=== PATIENT | male | born 1960 | race Two or more races ===

== ENCOUNTER 2024-10-23 18:35 | Emergency (ER) | payer OTHER ==
[~2024-10-23] VITALS: Ht 167.6 cm; Wt 90.7 kg
[2024-10-23] MEDS ORDERED: TAMS0.4C (18:40)
[2024-10-23] MEDS ORDERED: KETOROLAC TROMETHAMINE 30 MG VIAL IV ONE (19:00)
[2024-10-23] MEDS ORDERED: 0.9 % SODIUM CHLORIDE 1,000 ML IV ONE (19:00)
[2024-10-23] MEDS ORDERED: FAMOtidine 10 MG/ML (4ML VIAL) IV ONE (19:00)
[2024-10-23] MEDS ORDERED: FAMOTIDINE/PF 20 MG/2 ML VIAL ONE (19:57)
[2024-10-23] MEDS ORDERED: KETOROLAC TROMETHAMINE 30 MG VIAL ONE (19:57)
[2024-10-23 20:41] LABS: BASO % 0.4 % (0.1-1.2); EOS # 0.06 (0.04-0.54); EOS % 0.6 % (0.7-7.0); HEMATOCRIT 44.7 % (40.1-51.0); HEMOGLOBIN 15.1 g/dL (13.7-17.5); LYMPH # 2.64 (1.18-3.74); LYMPH % 27.6 % (19.3-53.1); MEAN CORPUSCULAR HEMOGLOBIN 30.9 pg (25.6-32.2); MONO # 0.71 (0.24-0.82); MONO % 7.4 % (4.7-12.5); NEUT # 6.11 (1.56-6.13); NEUT % 63.9 % (34.0-71.1); PLATELET COUNT 235 K/uL (163-369); RED BLOOD COUNT 4.89 M/uL (4.63-6.08); RED CELL DISTRIBUTION WIDTH 14.1 % (11.6-14.4)
[2024-10-23 21:14] LABS: PARTIAL THROMBOPLASTIN TIME 31.2 SECONDS (22.0-34.0); PROTHROMBIN TIME 10.9 SECONDS (9.0-11.5)
[2024-10-23 21:19] LABS: ALBUMIN 3.7 gm/dL (3.4-5.0); BILIRUBIN TOTAL 0.28 mg/dL (0.3-1.2); CALCIUM 9.5 mg/dL (8.5-10.1); CREATININE SERUM 1.23 mg/dL (0.70-1.30); GFR 59.06; GLOBULINA 3.2 G/DL (2.4-3.5); POTASSIUM 3.8 mEq/L (3.5-5.1); TOTAL PROTEIN 6.9 gm/dL (6.4-8.2)
[2024-10-23 21:47] LABS: URINE APPEARANCE Clear; URINE BILIRRUBIN Negative (NEGATIVE); URINE BLOOD Negative; URINE COLOR Yellow; URINE GLUCOSE Negative (NEGATIVE); URINE KETONE Trace (NEGATIVE); URINE LEUKOCYTE Negative; URINE NITRATE Negative; URINE PROTEIN Negative (NEGATIVE); URINE UROBILINOGEN 0.2 E.U./dl
[2024-10-23 21:52] LABS: URINE BACTERIA 12.2 uL (0.0-1933); URINE EPITHELIAL CELLS 3.4 uL (0.0-38.8); URINE RBC 6.9 uL (0.0-20.8); URINE WBC 4.4 uL (0.0-23.2)
[2024-10-23 21:56] LABS: URINE CAST 0.14 uL (0.0-1.40)
[2024-10-23 22:03] LABS: URINE CRYSTALS MODERATE /HPF
[2024-10-23] MEDS ORDERED: TAMS0.4C PO (22:45)
[2024-10-23] MEDS ORDERED: NORFLEX100MG PO (22:45)
[2024-10-23] MEDS ORDERED: BACTRIM DS TAB1 EACH PO (22:45)
[2024-10-23] MEDS ORDERED: PEPCID AC20 MG PO (22:45)
== END 2024-10-23 23:10 | disposition home or self-care (01) ==
LOC: ER 18:35
PROVIDERS: General Practice
DX: R10.32 Left lower quadrant pain (principal); R10.2 Pelvic and perineal pain
CPT/HCPCS: 36415; 74177; 96365; 96366; 99284; J1885; J3490; J7030; Q9965